=== PATIENT | male | born 1945 | race Caucasian/White ===

== ENCOUNTER 2017-04-09 06:32 | Inpatient (IN) ==
[2017-04-05 11:47] LABS: Basophils # 0.1 10*3/uL (0.0-0.2); Basophils % 0.9 % (0.0-0.8); Eosinophils # 0.3 10*3/uL (0.0-0.87); Hematocrit 37.7 VOL% (42.0-52.0); Hemoglobin 12.4 GM/DL (14.0-18.0); Immature Granulocytes % 0.3 %; Immature Granulocytes Absolute 0.02 #; Lymphocytes # 2.1 10*3/uL (1.4-4.0); Lymphocytes % 28.3 % (21.2-54.2); Mean Corpuscular HGB Conc 32.9 GM/DL (32-36); Mean Corpuscular Hemoglobin 30 PG (27-34); Mean Corpuscular Volume 91.1 FL (87-102); Mean Platelet Volume 10.5 FL (9.6-12.0); Monocytes # 1.1 10*3/uL (0.11-0.8); Monocytes % 15.1 % (1.7-12.7); Neutrophils # 3.9 10*3/uL (1.4-7.4); Neutrophils % 51.4 % (38.7-73.9); Platelet Count 186 T/CUMM (130-400); Red Blood Count 4.14 MC/CUMM (3.8-5.5); Red Cell Distribution Width 13.4 % (9.3-17.3); White Blood Count 7.5 T/CUMM (4-12)
[2017-04-05 12:26] LABS: Albumin 3.5 G/DL (3.4-5.0); Bilirubin,Total 0.8 MG/DL (0.2-1.0); Calcium 9.1 MG/DL (8.5-10.1); Osmolality,Calculated 294.1 MOS/KG (273-304); Potassium 4.8 MMOL/L (3.5-5.1)
[~2017-04-09 06:32] MED LIST: ceFAZolin 1,000 MG VIAL ONE; ceFAZolin 1,000 MG in SYRINGE 1 EACH IV ONE
[2017-04-09 07:22] LABS: INR 1.1; PT Patient Result 11.4 SECS; Partial Thromboplastin Time 27.9 SECS (0-40)
[2017-04-09] MEDS ORDERED: HEPARIN 5,000 UNIT/1 ML VIAL ONE (08:06)
[2017-04-09] MEDS ORDERED: VANCOMYCIN 1,000 MG VIAL ONE (08:06)
[2017-04-09] MEDS: LACTATED RINGERS 1,000 ML IV SCH ×3 (08:25→22:34)
[2017-04-09] MEDS ORDERED: oxyCODONE/ACETAMINOPHEN 5-325 MG TABLET PO PRN ×2 (10:06)
[2017-04-09] MEDS ORDERED: DEXTROSE 50% 25 GM/50 ML VIAL IV PRN ×2 (10:06→10:11)
[2017-04-09] MEDS ORDERED: HYDROmorphone 2 MG/1 ML VIAL IV PRN (10:06)
[2017-04-09] MEDS ORDERED: NALOXONE 0.4 MG/ML VIAL IV PRN (10:06)
[2017-04-09] MEDS ORDERED: PROMETHAZINE 25 MG/1 ML VIAL IM PRN (10:06)
[2017-04-09] MEDS ORDERED: ONDANSETRON 4 MG/2 ML VIAL IV PRN (10:06)
[2017-04-09] MEDS ORDERED: GLUCAGON 1 MG VIAL IM PRN ×2 (10:06→10:11)
[2017-04-09] MEDS ORDERED: SEVOFLURANE 1 UNIT/15 MINUTE INH ONE (10:35)
[2017-04-09] MEDS ORDERED: HEPARIN 10,000 UNIT/10 ML VIAL ONE (10:35)
[2017-04-09] MEDS ORDERED: fentaNYL 100 MCG/2 ML VIAL ONE (10:35)
[2017-04-09] MEDS ORDERED: GLYCOPYRROLATE 0.4 MG/2 ML VIAL ONE (10:35)
[2017-04-09] MEDS ORDERED: ONDANSETRON 4 MG/2 ML VIAL ONE (10:35)
[2017-04-09] MEDS ORDERED: PHENYLEPHRINE DRIP 20 MG/250 ML PREMIX IV ONE (10:35)
[2017-04-09] MEDS ORDERED: PROPOFOL 200 MG/20 ML VIAL IV ONE (10:35)
[2017-04-09] MEDS ORDERED: NITROGLYCERIN DRIP 0 MG/0 ML BOTTLE IV ONE (10:36)
[2017-04-09] MEDS ORDERED: ROCURONIUM 100 MG/10 ML VIAL IV ONE (10:36)
[2017-04-09] MEDS ORDERED: NEOSTIGMINE 10 MG/10 ML VIAL ONE (10:36)
[2017-04-09] MEDS ORDERED: SUCCINYLCHOLINE 200 MG/10 ML VIAL ONE (10:36)
[2017-04-09] MEDS ORDERED: SODIUM CHLORIDE 0.9% 1,000 ML IV ONE (10:36)
[2017-04-09] MEDS ORDERED: PROTAMINE SULFATE 50 MG/5 ML VIAL IV ONE (10:36)
[2017-04-09] MEDS ORDERED: SODIUM CHLORIDE 0.9% 500 ML IV ONE (10:36)
[2017-04-09] MEDS ORDERED: NITROPRUSSIDE 100 MG in DEXTROSE 5% 250 ML IV SCH (12:00)
[2017-04-09] MEDS: HYDROmorphone 2 MG/1 ML VIAL IV PRN ×2 (12:06→20:12)
[2017-04-09] MEDS: ASPIRIN EC 81 MG TABLET PO SCH (12:30)
[2017-04-09] MEDS: PHENYLEPHRINE DRIP 40 MG/250 ML PREMIX IV SCH (15:22)
[2017-04-09] MEDS: GEMFIBROZIL 600 MG TABLET PO SCH (16:42)
[2017-04-09] MEDS ORDERED: WARFARIN 4 MG TABLET PO SCH (18:00)
[2017-04-09] MEDS ORDERED: ALLOPURINOL 100 MG TABLET PO SCH (21:00)
[2017-04-09] MEDS ORDERED: ATORVASTATIN 40 MG TABLET PO SCH (21:00)
[2017-04-09] MEDS: METOPROLOL TARTRATE 50 MG TABLET PO SCH (22:06)
[2017-04-10] MEDS ORDERED: LEVOTHYROXINE 75 MCG TABLET PO SCH (07:00)
[2017-04-10] MEDS ORDERED: LOSARTAN/HCTZ 50-12.5 MG TABLET PO SCH (09:00)
[2017-04-10] MEDS ORDERED: sitaGLIPtin 25 MG TABLET PO SCH (09:00)
[2017-04-10] MEDS ORDERED: PANTOPRAZOLE 40 MG TABLET PO SCH (09:00)
[2017-04-10] MEDS: GEMFIBROZIL 600 MG TABLET PO SCH ×2 (10:05→16:26)
[2017-04-10] MEDS: METOPROLOL TARTRATE 50 MG TABLET PO SCH (10:05)
[2017-04-10] MEDS: ASPIRIN EC 81 MG TABLET PO SCH (10:07)
[2017-04-10] MEDS: LACTATED RINGERS 1,000 ML IV SCH (10:09)
[2017-04-10] MEDS: PHENYLEPHRINE DRIP 40 MG/250 ML PREMIX IV SCH (10:10)
[2017-04-10] MEDS ORDERED: ASPIRIN EC 81 MG TABLET PO SCH (10:52)
[2017-04-10] MEDS: INSULIN LISPRO 100 UNIT/ML SUBCUT SCH ×2 (11:45→16:33)
[2017-04-10 16:31] VITALS: BP 126/55
[2017-04-10] MEDS ORDERED: WARFARIN 4 MG TABLET PO SCH (18:00)
[2017-04-10] MEDS ORDERED: INSULIN GLARGINE 100 UNIT/ML SUBCUT SCH (21:00)
[2017-04-11] MEDS ORDERED: FUROSEMIDE 20 MG TABLET PO SCH (09:00)
== END 2017-04-10 18:25 | disposition home or self-care (01) | DRG 39 ==
LOC: N.OR 06:32 → N.SDSINP 06:33 → N.ICU 10:07 → N.3E 04-10 10:37
PROVIDERS: ADMIT Surgery; ATTEND Surgery